=== PATIENT | female | born 1975 | race Caucasian/White ===

== ENCOUNTER → 2024-10-09 13:07 | Outpatient (BNVA) | payer BC, SELFPAY | PROVIDERS: PCP Family Medicine; Visit Provider Family Medicine | DX: Z91.89 Other specified personal risk factors, not elsewhere classified (principal) | CPT/HCPCS: 80053; 85025; 86140 ==

== ENCOUNTER → 2024-11-05 10:17 | Outpatient (BNVA) | payer BC, SELFPAY | PROVIDERS: PCP Family Medicine; Visit Provider Family Medicine | DX: Z91.89 Other specified personal risk factors, not elsewhere classified (principal) | CPT/HCPCS: 80053; 85025; 86140; 86618; 86666; 86757 ==

== ENCOUNTER → 2024-11-25 12:17 | Outpatient (BNVA) | payer BC, SELFPAY | PROVIDERS: PCP Family Medicine; Visit Provider Family Medicine | DX: R53.83 Other fatigue (principal) | CPT/HCPCS: 80074; 82607; 82672; 83001; 83880; 84443; 86664; 86665 ==